=== PATIENT | female | born 1970 | race Caucasian/White ===

== ENCOUNTER 2018-07-05 12:34 | Inpatient (IN) | payer MEDICAID ==
[~2018-07-05] VITALS: Ht 167.6 cm; Wt 97.3 kg
[2018-07-05 13:16] LABS: HEMATOCRIT 51.3 % (36.0-48.0); HEMOGLOBIN 18.2 g/dL (12-16); MCH 34.3 pg (26.0-34.0); MCHC 35.5 g/dL (31.0-37.0); MCV 96.6 fL (80.0-100.0); MEAN PLATELET VOLUME 9.2 fL (7.4-10.4); PLATELET COUNT 315 10x3/uL (130-400); RBC 5.31 10x6/uL (4.00-5.40); RDW 13.6 % (11.5-14.5); WBC 22.9 10x3/uL (4.8-10.8)
[2018-07-05 13:23] LABS: ALBUMIN 4.6 g/dL (3.4-5.0); ANION GAP 18.2 mmol/L (8-16); BILIRUBIN - TOTAL 0.47 mg/dL (0.2-1.3); CALCIUM 9.9 mg/dL (8.5-10.1); CARBON DIOXIDE 25.6 mmol/L (21.0-32.0); CREATININE - SERUM 1.2 mg/dL (0.6-1.3); POTASSIUM - SERUM 3.8 mmol/L (3.5-5.1); PROTEIN - SERUM 9.5 g/dL (6.4-8.2)
[2018-07-05 13:53] LABS: LYMPHOCYTES 8 % (15-50); MONOCYTES 8 % (2-11); NEUTROPHILS 80 % (40-80); PLATELET ESTIMATE NORMAL
--- NOTE | 2018-07-05 15:03 | NUR ---
PT LEAVING FOR ORDERED CT SCAN, TRANSPORTED VIA STRETCHER. NO SIGNS OF DISTRESS NOTED WHEN LEAVING.
--- NOTE | 2018-07-05 15:08 | NUR ---
URINE SAMPLE SENT TO THE LAB AT THIS TIME.
[2018-07-05 15:42] LABS: APPEARANCE SL CLDY (CLEAR); BILIRUBIN NEGATIVE (NEGATIVE); COLOR DK YELLOW (YELLOW); GLUCOSE NEGATIVE (NEGATIVE); KETONE NEGATIVE (NEGATIVE); NITRITE NEGATIVE (NEGATIVE); SPECIFIC GRAVITY 1.025 (1.005-1.020); UROBILINOGEN NORMAL (NORMAL)
[2018-07-05 15:43] LABS: BACTERIA MODERATE /hpf (NONE SEEN); CALCIUM OXALATE CRYSTALS 0-5 /hpf (NONE SEEN); MUCUS <1+ /lpf (NONE SEEN); PROTEIN TRACE mg/dL (NEGATIVE); WHITE CELLS - URINE 0-5 /hpf (0-5)
--- NOTE | 2018-07-05 16:23 | NUR ---
WILL ADMINISTER ORDERED VANCOMYCIN ONCE ORDERED MERREM IS COMPLETE.
[2018-07-05 16:27] VITALS: BP 110/60
--- NOTE | 2018-07-05 17:15 | NUR ---
ATTEMPTED TO CALL REPORT AT THIS TIME. WILL ATTEMPT TO CALL AGAIN SHORTLY.
--- NOTE | 2018-07-05 17:42 | NUR ---
1733-RECEVIED REPORT FROM LUISA GORDON IN THE ED.
--- NOTE | 2018-07-05 18:05 | NUR ---
ORDERED VANCOMYCIN COMPLETE AT THIS TIME.
--- NOTE | 2018-07-05 18:15 | NUR ---
1800-RECEIVED TO ROOM VIA WHEELCHAIR. WILL ADMIT. DENIES NEEDS AT THIS TIME.
[2018-07-05 18:22] VITALS: BP 104/62; Ht 167.6 cm; Wt 97.3 kg
--- NOTE | 2018-07-05 19:33 | NUR ---
AWAKE AND DENIES NEEDS AT THIS TIME. PT ON RA AND TELEMETRY SHOWING SR. IV INCREASED FROM 100 TO 125 PER ORDER OF 125/HR NO REDNESS NO EDEMA NOTED LCTA AND SKIN IS WARM AND DRY BED LOW AND CALL LIGHT IS IN REACH.
[2018-07-05 20:00] VITALS: BP 169/60
--- NOTE | 2018-07-05 20:45 | NUR ---
RESTING WITH EYES CLOSED AND CALL LIGHT IS IN REACH AT THIS TIME
[2018-07-06] VITALS (7 sets, daily range): BP systolic 101–129; BP diastolic 48–74
[2018-07-06 06:02] LABS: BASOPHILS 0.1 % (0-2); EOSINOPHILS 0.5 % (0-7); IMMATURE GRANULOCYTES 0.3 % (0-5); LYMPHOCYTES 14.6 % (15-50); MCH 32.7 pg (26.0-34.0); MCHC 34.4 g/dL (31.0-37.0); MEAN PLATELET VOLUME 9.3 fL (7.4-10.4); MONOCYTES 8.6 % (2-11); NEUTROPHILS 75.9 % (40-80); PLATELET COUNT 274 10x3/uL (130-400); RDW 13.5 % (11.5-14.5)
[2018-07-06 06:06] LABS: HEMATOCRIT 38.1 % (36.0-48.0); HEMOGLOBIN 13.1 g/dL (12-16); RBC 4.01 10x6/uL (4.00-5.40); WBC 16.4 10x3/uL (4.8-10.8)
[2018-07-06 06:29] LABS: ANION GAP 15.2 mmol/L (8-16); BILIRUBIN - TOTAL 0.27 mg/dL (0.2-1.3); CALCIUM 7.5 mg/dL (8.5-10.1); CARBON DIOXIDE 21.3 mmol/L (21.0-32.0); CREATININE - SERUM 0.9 mg/dL (0.6-1.3); POTASSIUM - SERUM 3.5 mmol/L (3.5-5.1)
[2018-07-06 06:31] LABS: ALBUMIN 2.9 g/dL (3.4-5.0); PROTEIN - SERUM 6.2 g/dL (6.4-8.2)
--- NOTE | 2018-07-06 07:35 | NUR ---
ROUNDING DONE WITH PATIENT AROUSES EASILY WHEN WALKING INTO ROOM, SPOUSE IS ASLEEP IN RECLINER. DENIES ANY NEEDS AT THIS TIME. STATES TO HAVING 2 LOOSE STOOLS LAST NIGHT, NO [place] HAT FOR COLLECTION. ONE IS PLACED NOW. ON HEART MONITOR SHOWING SR, HR 81. ROOM AIR. RIGHT INNER FA PIV SEEN WITH NS INFUSING AT 125 CC/HR WITH ORANGE SWAB CAPS IN USE. DENIES ANY NAUSEA OR VOMITING LAST SHIFT.
--- NOTE | 2018-07-06 09:15 | NUR ---
STOOL SENT TO LAB ORDERED. STOOL IS WATERY
--- NOTE | 2018-07-06 11:38 | NUR ---
RESTING IN BED, DENIES NEEDS WHEN ASKED. NO COMPLAINTS OF ANY NAUSEA OR VOMITING. WILL CONTINUE TO MONITOR.
--- NOTE | 2018-07-06 12:55 | NUR ---
DENIES NEEDS, NEW ORDERS SEEN PER ZEESHAN VELASCO APN AND WILL START NEW IV ANTIBIOTICS.
--- NOTE | 2018-07-06 13:13 | NUR ---
PATIENT MEDICATION EDUCATION FOR LEVAQUIN AND FLAYGL PRINTED OFF AND GIVEN TO PATIENT.
--- NOTE | 2018-07-06 14:15 | MORECARE ---
CASE MANAGEMENT DISCHARGE SUMMARY PATIENT: DENISE AZAR UNIT: [id number] ADM DATE: 07/05/18 AGE: 47 : 72 SEX: F ROOM/BED: D.2136 AUTHOR: LE TOVAR PHYSICIAN: REFERRING PHYSICIAN: MANPREET MAIER MD DATE OF SERVICE: 07/06/18 Discharge Plan Patient Name: [facility] [facility] 1970 Planned Disposition: Home Anticipated Discharge Date: Discharge Date: Expected LOS: Initial Reviewer: [email or web address] Initial Review Date: 07/06/2018 Generated: 07/06/18 3:15 pm DCPIA - Discharge Planning Initial Assessment Updated by [email or web address]: Joes L Goldstein on 07/06/18 2:12 pm * Is the patient Alert and Oriented? Yes * How many steps to enter\\exit or inside your home? NONE * PCP DR. RIVERA * Pharmacy [facility] * Preadmission Environment Home with Family * ADLs Independent * Equipment None * Other Equipment NONE * List name and contact numbers for known caregivers / representatives who currently or will assist patient after discharge: VASYL "DELICIA" NISSA, SPOUSE, * Verbal permission to speak to the caregivers and representatives has been obtained from the patient. N/A * Community resources currently utilized None * Please name any agencies selected above. NONE * Additional services required to return to the preadmission environment? No * Can the patient safely return to the preadmission environment? Yes * Has this patient been hospitalized within the prior 30 days at any hospital? No Patient Name: DENISE AZAR Page [id number] at 1415 All edits/amendments must be made on the electronic document DICTATION DATE: 07/06/18 141 DIRECTOR CONSUMER: MICHELLE 07/06/18 141 RPT#: [id number] DC DATE: STATUS: ADM IN [facility] [address] [place] [address] END OF REPORT
--- NOTE | 2018-07-06 14:35 | MORECARE ---
CASE MANAGEMENT DISCHARGE SUMMARY PATIENT: DENISE AZAR UNIT: [id number] ADM DATE: 07/05/18 AGE: 47 : 72 SEX: F ROOM/BED: D.2136 AUTHOR: LA,DOC PHYSICIAN: REFERRING PHYSICIAN: MANPREET MAIER MD DATE OF SERVICE: 07/06/18 Discharge Plan Patient Name: DENISE AZAR Facility: [facility]:[place] : 1970 Planned Disposition: Home Anticipated Discharge Date: Discharge Date: Expected LOS: Initial Reviewer: [email or web address] Initial Review Date: 07/06/2018 Generated: 07/06/18 3:35 pm Comments DCP- Discharge Planning Updated by [email or web address]: Jose L Goldstein on 07/06/18 1:[address] Patient Name: DENISE AZAR Admission Status: ER Accout number: [id number] Admission Date: 07-05-2018 : 1970 Admission Diagnosis:NAUSEA WITH VOMITING, UNSPECIFIED Attending: MANPREET MAIER Current LOS: 1 Anticipated DC Date: Planned Disposition: Home [place] Insurance: [place] [employer] [place] Discharge Planning Comments: CM MET WITH PT IN ROOM TO DISCUSS DISCHARGE PLANNING AND NEEDS. PT REPORTS LIVING AT HOME INDEPENDENTLY WITH HER SPOUSE. PT HAS NO MEDICAL EQUIPMENT AND NO OUTSIDE SERVICES ASSISTING IN THE HOME. CM DISCUSSED AVAILABILITY OF HOME HEALTH, REHAB SERVICES AND MEDICAL EQUIPMENT. PT DENIES DISCHARGE NEEDS, REPORTS HER SPOUSE WILL PICK HER UP FOR DISCHARGE HOME. PT PLANS TO DISCHARGE HOME WITH SPOUSE, DENIES DISCHARGE NEEDS AT THIS TIME, CM TO FOLLOW AND ASSIST IF NEEDED. Assistant Professor Of Surgery: Jose L Goldstein DCPIA - Discharge Planning Initial Assessment Updated by [email or web address]: Jose L Goldstein on 07/06/18 2:12 pm * Is the patient Alert and Oriented? Yes * How many steps to enter\\exit or inside your home? NONE * PCP DR. RIVERA * Pharmacy [address] * Preadmission Environment Home with Family * ADLs Independent * Equipment None * Other Equipment NONE * List name and contact numbers for known caregivers / representatives who currently or will assist patient after discharge: VASYL "J LUISVALERIA" NISSA, SPOUSE, * Verbal permission to speak to the caregivers and representatives has been obtained from the patient. N/A * Community resources currently utilized None * Please name any agencies selected above. NONE * Additional services required to return to the preadmission environment? No * Can the patient safely return to the preadmission environment? Yes * Has this patient been hospitalized within the prior 30 days at any hospital? No Last DP export: 07/06/18 1:15 pm Patient Name: DENISE AZAR Page 51850 at 1435 All edits/amendments must be made on the electronic document DICTATION DATE: 07/06/18 1434 WELDING TECHNICIAN: DM 07/06/18 1434 RPT#: [id number] DC DATE: STATUS: ADM IN [facility] [address] [place] [address] END OF REPORT
--- NOTE | 2018-07-06 14:40 | NUR ---
BOTH PAITENT AND SPOUSE ASLEEP IN THE BED. PATIENT AROUSES EASILY WHEN I GO IN TO HANG ANTIBIOTIC. SHE STATES THAT THE LEVAQUIN "BURNED SOME IT WENT IN". I SEE NOR FEEL ANY INFILTRATION OF MEDICATION. I INFORMED HER THAT I WOULD PASS ALONG TO NEXT NURSE TO RUN IT AT A SLOWER RATE TOMORROW. I AM RUNNING THE FLAGYL AT A SLOWER RATE TO SEE HOW THIS DOES. INSTRCUTED HER TO CALL ME IF ANY PROBLEMS WITH IT. STATES TO UNDERSTANDING.
--- NOTE | 2018-07-06 15:51 | NUR ---
ADAIR HAT PLACED INTO TOLIET AND PATIENT AND SPOUSE IF INFORMED THAT WE NEED MORE STOOL FOR O AND P. STATE TO UNDERSTANDING.
--- NOTE | 2018-07-06 18:02 | NUR ---
STOOL SENT AGAIN FOR O AND A.
--- NOTE | 2018-07-06 19:35 | NUR ---
AWAKE IN BED WITH NO NOTED DISTRESS PT DOES ASK FOR ANOTHER NICOTINE PATCH AND EDUCATION ON FUCTION GIVEN BED IS IN A SLIGHTLY HIGH POSITION BUT PT INSISTS IT STAY SHE IS ORIENTED AND PRESENTS NO FALL RISK.. CALL LIGHT IS IN REACH LCTA IV TO RT FA WITH NO REDNESS AND NO EDEMA INFUSING AT 125
--- NOTE | 2018-07-06 23:05 | NUR ---
COMPLAINING OF RIB PAIN AND A HARD TIME BREATHING SPO2 IS WNL AND LUNGS CLEAR AND NO SIGN OF SOB..DEMEROL GIVEN IV AND I WILL TURN FLUIDS DOWN TO 15 FOR NOW
--- NOTE | 2018-07-07 02:19 | NUR ---
I have reviewed this patient and I concur with the Shift Assessment completed by the Licensed Practical Nurse today this shift.
[2018-07-07 04:30] VITALS: BP 121/76
[2018-07-07 05:42] LABS: BASOPHILS 0.2 % (0-2); HEMATOCRIT 34.5 % (36.0-48.0); HEMOGLOBIN 11.9 g/dL (12-16); IMMATURE GRANULOCYTES 0.2 % (0-5); LYMPHOCYTES 27.1 % (15-50); MCH 32.6 pg (26.0-34.0); MCHC 34.5 g/dL (31.0-37.0); MCV 94.5 fL (80.0-100.0); MEAN PLATELET VOLUME 9.2 fL (7.4-10.4); MONOCYTES 9.7 % (2-11); NEUTROPHILS 60.8 % (40-80); PLATELET COUNT 232 10x3/uL (130-400); RBC 3.65 10x6/uL (4.00-5.40); RDW 13.5 % (11.5-14.5)
[2018-07-07 05:50] LABS: WBC 9.1 10x3/uL (4.8-10.8)
[2018-07-07 06:02] LABS: ALBUMIN 2.8 g/dL (3.4-5.0); ALKALINE PHOSPHATASE 56 U/L (46-116); ALT (SGPT) 15 U/L (10-68); BILIRUBIN - TOTAL 0.23 mg/dL (0.2-1.3); CARBON DIOXIDE 22.5 mmol/L (21.0-32.0); CHLORIDE - SERUM 109 mmol/L (98-107); CREATININE - SERUM 0.7 mg/dL (0.6-1.3); GLUCOSE 90 mg/dL (74-106); POTASSIUM - SERUM 3.2 mmol/L (3.5-5.1); PROTEIN - SERUM 6.2 g/dL (6.4-8.2); SODIUM 143 mmol/L (136-145); VANCOMYCIN - TROUGH 2.6 ug/mL (10.0-20.0); eGFR NON AFRICAN AMERICAN > 90 mL/min (90-120)
[2018-07-07 06:05] LABS: CALC OSMOLALITY 282 mosm/kg (275-300); UREA NITROGEN 6 mg/dL (7-18)
--- NOTE | 2018-07-07 07:16 | NUR ---
PT ASLEEP WHEN I ENTERED. DID NOT WAKE TO SOUND, DID NOT FURTHER DISTURB AT THIS TIME. CL INREACH. SRX2. LIGHTS OFF.
[2018-07-07 09:30] VITALS: BP 121/64
[2018-07-07 12:26] VITALS: BP 135/68
[2018-07-07] MEDS ORDERED: FLAGYL500 MG PO (15:17)
[2018-07-07] MEDS ORDERED: LEVOFLOXACIN500 MG PO (15:17)
--- NOTE | 2018-07-07 16:35 | NUR ---
PT AMBULATED OUT BY SELF. NO CONCENRS/COMPLAINTS. WALKED FIEN.
--- NOTE | 2018-07-09 11:53 | MORECARE ---
CASE MANAGEMENT DISCHARGE SUMMARY PATIENT: DENISE AZAR UNIT: [id number] ADM DATE: 07/05/18 AGE: 47 : 72 SEX: F ROOM/BED: D.4952 AUTHOR: LA,DOC PHYSICIAN: REFERRING PHYSICIAN: MANPREET MAIER MD DATE OF SERVICE: 07/09/18 Discharge Plan Patient Name: DENISE AZAR Facility: [facility]:[place] : 1970 Planned Disposition: Home Anticipated Discharge Date: 07/07/18 Discharge Date: 07/07/2018 Expected LOS: 2 Initial Reviewer: [email or web address] Initial Review Date: 07/06/2018 Generated: 07/09/18 12:52 pm Comments DCP- Discharge Planning Updated by [email or web address]: Jose L Goldstein on 07/06/18 12:[address] Patient Name: DENISE AZAR Admission Status: ER Accout number: [id number] Admission Date: 07-05-2018 : 1970 Admission Diagnosis:NAUSEA WITH VOMITING, UNSPECIFIED Attending: MANPREET MAIER Current LOS: 1 Anticipated DC Date: Planned Disposition: Home [place] Insurance: [place] [employer] [place] Discharge Planning Comments: CM MET WITH PT IN ROOM TO DISCUSS DISCHARGE PLANNING AND NEEDS. PT REPORTS LIVING AT HOME INDEPENDENTLY WITH HER SPOUSE. PT HAS NO MEDICAL EQUIPMENT AND NO OUTSIDE SERVICES ASSISTING IN THE HOME. CM DISCUSSED AVAILABILITY OF HOME HEALTH, REHAB SERVICES AND MEDICAL EQUIPMENT. PT DENIES DISCHARGE NEEDS, REPORTS HER SPOUSE WILL PICK HER UP FOR DISCHARGE HOME. PT PLANS TO DISCHARGE HOME WITH SPOUSE, DENIES DISCHARGE NEEDS AT THIS TIME, CM TO FOLLOW AND ASSIST IF NEEDED. Edge Gluer: Jose L Goldstein DCPIA - Discharge Planning Initial Assessment Updated by [email or web address]: Jose L Goldstein on 07/06/18 2:12 pm * Is the patient Alert and Oriented? Yes * How many steps to enter\\exit or inside your home? NONE * PCP DR. RIVERA * [facility] * Preadmission Environment Home with Family * ADLs Independent * Equipment None * Other Equipment NONE * List name and contact numbers for known caregivers / representatives who currently or will assist patient after discharge: VASYL "DELICIA" NISSA, SPOUSE, * Verbal permission to speak to the caregivers and representatives has been obtained from the patient. N/A * Community resources currently utilized None * Please name any agencies selected above. NONE * Additional services required to return to the preadmission environment? No * Can the patient safely return to the preadmission environment? Yes * Has this patient been hospitalized within the prior 30 days at any hospital? No Last DP export: 07/06/18 12:35 pm Patient Name: DENISE AZAR Page [phone] at 1153 All edits/amendments must be made on the electronic document DICTATION DATE: 07/09/18 115 MAKE UP MAN: MICHELLE 07/09/18 1152 RPT#: [id number] DC DATE:07/07/18 STATUS: DIS IN [facility] [address] [place] [address] END OF REPORT
== END 2018-07-07 16:36 | disposition home or self-care (01) | DRG 392 ==
LOC: EDBD 12:34 → D.ER 12:34 → D.M2 16:45 → D.EDHOLD 16:45 → D.M2 16:53
PROVIDERS: Family Medicine; Internal Medicine Gastroenterology; ADMIT Emergency Medicine; ATTEND Emergency Medicine
DX: K52.9 Noninfective gastroenteritis and colitis, unspecified (principal); E87.2 Acidosis; E86.0 Dehydration; E66.01 Morbid (severe) obesity due to excess calories; Z68.34 Body mass index [BMI] 34.0-34.9, adult; F12.90 Cannabis use, unspecified, uncomplicated; D72.829 Elevated white blood cell count, unspecified